=== PATIENT | male | born 1995 | race Caucasian/White ===

== ENCOUNTER 2020-01-03 12:51 | Emergency (ER) | payer SELFPAY ==
--- NOTE | 2020-01-03 13:17 | EDM.PDOC ---
ED HPI GENERAL MEDICAL PROBLEM - General Chief Complaint: Lower Extremity Injury/Pain Stated Complaint: INFECTED TOE NAIL Time Seen by Provider: 01/03/20 13:01 Source of Information: Reports: Patient History Limitations: Reports: No Limitations - History of Present Illness INITIAL COMMENTS - FREE TEXT/NARRATIVE: Patient is a 24-year-old male who presents with complaints of an infected toenail for the last 8 months. He says it will go through periods of improvement and then worsening. He has been soaking it and wrapping it intermittently. He has not sought treatment for it up until this point. He denies any fever, chills, nausea, vomiting, or diarrhea. Left Foot Pain Score (Numeric/FACES): 6 - Related Data Allergies Allergy/AdvReac Type Severity Reaction Status Date / Time No Known Allergies Allergy Verified 01/03/20 13:04 Home Meds: Home Meds cephALEXin [Keflex] 500 mg PO Q6H #28 cap 01/03/20 [Rx] Past Medical History - Past Health History Medical/Surgical History: Denies Medical/Surgical History Social & Family History - Tobacco Use Smoking Status *Q: Never Smoker Review of Systems - Review of Systems Review Of Systems: Comprehensive ROS is negative, except as noted in HPI. ED EXAM, GENERAL - Physical Exam Exam: See Below Exam Limited By: No Limitations General Appearance: Alert, WD/WN, No Apparent Distress Respiratory/Chest: No Respiratory Distress, Lungs Clear, Normal Breath Sounds, No Accessory Muscle Use, Chest Non-Tender Cardiovascular: Normal Peripheral Pulses, Regular Rate, Rhythm, No Edema, No Gallop, No JVD, No Murmur, No Rub Extremities: Other (Redness to the distal portion of the left great toe. Dried purulence and inflammation to the lateral aspect of the left great toenail.) Neurological: Alert, Oriented, CN II-XII Intact, Normal Cognition, Normal Gait, Normal Reflexes, No Motor/Sensory Deficits Psychiatric: Normal Affect, Normal Mood Skin Exam: Warm, Dry, Intact, Normal Color, No Rash Course - Vital Signs Last Recorded V/S: Last Vital Signs Temp 98.0 F 01/03/20 13:00 Pulse 89 01/03/20 13:00 Resp 16 01/03/20 13:00 BP 123/79 01/03/20 13:00 Pulse Ox 97 01/03/20 13:00 - Re-Assessments/Exams Free Text/Narrative Re-Assessment/Exam: 01/03/20 13:15 On exam, patient does have a paronychia of the left lateral great toenail. We will start him on Keflex today. Recommended that he follow-up with podiatry, however Dr. Rico is out of the office until January. We will have him schedule with one of the providers in our clinic who can perform a toenail removal. An appointment has been made with HANNAH Carlton for a partial toenail removal. Departure - Departure Time of Disposition: 13:17 Disposition: Home, Self-Care 01 Condition: Good Clinical Impression: Paronychia due to ingrown nail - Discharge Information *PRESCRIPTION DRUG MONITORING PROGRAM REVIEWED*: No *COPY OF PRESCRIPTION DRUG MONITORING REPORT IN PATIENT RAYMUNDO: No Prescriptions: cephALEXin [Keflex] 500 mg PO Q6H #28 cap Referrals: Irwin Melvin PA-C [Physician [employer]rier] - Additional Instructions: You were seen in the emergency department today for an infected ingrown toenail. You have been started on Keflex which is an antibiotic. Take this medication as prescribed for the full course. An appointment has been made with HANNAH Carlton to have a partial toenail removal done to prevent reinfection. This is on January 12 at 10:30 AM. You may check in at the East entrance at [facility]. If you should feel that your symptoms are worsening, please not hesitate to return to the emergency department. Sepsis Event Note - Evaluation Sepsis Screening Result: No Definite Risk - Focused Exam Vital Signs: Vital Signs Temp Pulse Resp BP Pulse Ox 01/03/20 13:00 98.0 F 89 16 123/79 97 Date Exam was Performed: 01/03/20 Time Exam was Performed: 13:12
== END 2020-01-03 13:34 | disposition home or self-care (01) ==
LOC: JD.ED 12:51
DX: L03.032 Cellulitis of left toe (principal)
CPT/HCPCS: 10060; 99282; 99283-25

== ENCOUNTER 2020-06-09 18:04 | Emergency (ER) | payer SELFPAY ==
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
== END 2020-06-09 19:58 | disposition home or self-care (01) ==
LOC: JD.ED 18:04
DX: S20.219A Contusion of unspecified front wall of thorax, initial encounter (principal); S60.222A Contusion of left hand, initial encounter; S70.12XA Contusion of left thigh, initial encounter; F17.210 Nicotine dependence, cigarettes, uncomplicated; V58.5XXA Driver of pick-up truck or van injured in noncollision transport accident in traffic accident, initial encounter
CPT/HCPCS: 71046; 73130-LT; 73590-LT; 73610-RT; 99282; 99284-25

== ENCOUNTER 2024-02-17 02:47 | Emergency (ER) | payer SELFPAY | END 2024-02-17 03:05 | LOC: JD.ED 02:47 | DX: Z02.89 Encounter for other administrative examinations (principal) | CPT/HCPCS: 93005; 99283 ==

== ENCOUNTER 2025-01-03 02:31 | Emergency (ER) | payer MEDICAID, OTHER ==
[2025-01-03] MEDS: Ketorolac 30 MG/ML SDV IM ONE (03:13)
[2025-01-03] MEDS ORDERED: Cephalexin 500 MG Cap PO ONE (04:30)
== END 2025-01-03 04:39 | disposition home or self-care (01) ==
LOC: JD.ED 02:31
DX: L03.114 Cellulitis of left upper limb (principal); M79.632 Pain in left forearm; Z86.16 Personal history of COVID-19
CPT/HCPCS: 73090; 93971; 96372; 99284; J1885